=== PATIENT | female | born 2000 | race Caucasian/White ===

== ENCOUNTER → 2022-09-07 | Outpatient (CLI) | payer MEDICAID ==
[2022-09-07 23:42] LABS: Ferritin 45.9 ng/mL (10.0-291.0); Iron 42 ug/dL (50-170)
[2022-09-08 14:40] LABS: % Iron Saturation 8.62 (12.00-45.00); Rheumatoid Factor, Qnt <10 IU/mL (0-15); Total Iron Binding Capacity 486 ug/dL (228-460)
== END | disposition home or self-care (01) ==
LOC: LABWHC1 15:47
PROVIDERS: ATTEND Internal Medicine Hematology & Oncology
DX: D47.3 Essential (hemorrhagic) thrombocythemia (principal); R51.9 Headache, unspecified
CPT/HCPCS: 36415; 82728; 83540; 83550; 85652; 86038; 86431

== ENCOUNTER → 2022-09-07 | Outpatient (CLI) | payer MEDICAID ==
--- NOTE | 2022-09-07 19:18 | XR ---
EXAMINATION TYPE: XR chest 2V DATE OF EXAM: 09/07/2022 4:21 PM COMPARISON: None TECHNIQUE: XR chest 2V Frontal and lateral views of the chest. CLINICAL INDICATION:Female, 21 years old with history of D47.3 Thrombocytosis, R51.9 Headache; FINDINGS: Lungs/Pleura: There is no evidence of pleural effusion, focal consolidation, or pneumothorax. Pulmonary vascularity: Unremarkable. Heart/mediastinum: Cardiomediastinal silhouette is unremarkable. Musculoskeletal: No acute osseous pathology. IMPRESSION: No acute cardiopulmonary disease/process.
== END | disposition home or self-care (01) ==
LOC: RADXRMAIN 16:07
PROVIDERS: ATTEND Internal Medicine Hematology & Oncology
DX: D47.3 Essential (hemorrhagic) thrombocythemia (principal); R51.9 Headache, unspecified
CPT/HCPCS: 71046

== ENCOUNTER → 2022-10-26 | Outpatient (CLI) | payer MEDICAID ==
--- NOTE | 2022-10-30 08:40 | HM ---
HOLTER MONITOR REPORT STUDY PERFORMED: A 24-hour Holter. INDICATION: Palpitations. Underlying rhythm is sinus with an average heart rate of 81 beats per minute. Heart rate varied from 54 beats per minute to 118 beats per minute. There were no episodes of sustained ventricular or supraventricular tachyarrhythmias. There were no episodes of more than 2-second pauses. CONCLUSIONS: This 24-hour Holter revealed sinus rhythm without significant tachy or bradyarrhythmias. MMODL / IJN: [id number] /
== END | disposition home or self-care (01) ==
LOC: RADECHMAIN 07:53
PROVIDERS: ATTEND Internal Medicine Clinical Cardiac Electrophysiology
DX: R00.2 Palpitations (principal)
CPT/HCPCS: 93225; 93226